=== PATIENT | male | born 1930 | race African-American/Black ===

== ENCOUNTER 2016-07-10 11:21 | Inpatient (IN) ==
--- NOTE | 2016-07-10 11:51 | EKG Report ---
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
[2016-07-10 11:57] LABS: Basophils % 0.2 % (0.0-0.8); Hematocrit 35.3 VOL% (42.0-52.0); Hemoglobin 11.9 GM/DL (14.0-18.0); Immature Granulocytes % 0.4 %; Immature Granulocytes Absolute 0.02 #; Lymphocytes # 0.3 10*3/uL (1.4-4.0); Lymphocytes % 5.6 % (21.2-54.2); Mean Corpuscular HGB Conc 33.7 GM/DL (32-36); Mean Corpuscular Hemoglobin 33 PG (27-34); Mean Corpuscular Volume 98.3 FL (87-102); Mean Platelet Volume 10.5 FL (9.6-12.0); Monocytes # 0.7 10*3/uL (0.11-0.8); Monocytes % 13.3 % (1.7-12.7); Neutrophils # 4.5 10*3/uL (1.4-7.4); Neutrophils % 80.5 % (38.7-73.9); Platelet Count 134 T/CUMM (130-400); Red Blood Count 3.59 MC/CUMM (3.8-5.5); Red Cell Distribution Width 11.9 % (9.3-17.3); White Blood Count 5.6 T/CUMM (4-12)
[2016-07-10 12:09] LABS: Partial Thromboplastin Time 38.9 SECS (0-40)
--- NOTE | 2016-07-10 12:09 | CT Report ---
History: Headache after fall Date: 07/10/2016 Study: CT head without contrast Comparison exam: No previous Transaxial CT sections were obtained through the head without IV contrast. This CT exam was performed using one or more the following dose reduction techniques: Automated exposure control, adjustment of the MA and/or KV according to patient size, or use of iterative reconstruction technique. There is moderate diffuse cerebral atrophy. Ventricles are midline in position without evidence of hydrocephalus. There is a small amount of ill-defined low density in the periventricular white matter without mass effect compatible with changes of small vessel disease. There is wedge-shaped area of decreased density compatible with chronic ischemia in the right occipital lobe. There is no acute extra-axial hematoma. There is no acute fracture of the calvarium. The partially visualized paranasal sinuses and mastoid air cells are clear. Impression: No acute intracranial process. Chronic right occipital infarct. Cerebral atrophy PROCEDURE INTERPRETED AT [facility] DEPARTMENT OF RADIOLOGY Final Report Signed by: Dr. Anjelica Marrero
[2016-07-10 12:14] LABS: INR 2.4
--- NOTE | 2016-07-10 12:15 | CT Report ---
History: Neck pain after fall Date: 07/10/2016 Study: CT cervical spine without contrast Comparison exam: No previous similar available Thin spiral CT sections were obtained through the cervical spine without IV contrast. Multiplanar reconstruction images are also evaluated. This CT exam was performed using one or more the following dose reduction techniques: Automated exposure control, adjustment of the MA and/or KV according to patient size, or use of iterative reconstruction technique. There is no acute fracture, subluxation, or prevertebral soft tissue swelling. There is severe degenerative disc narrowing with moderate anterior spondylosis at C2-C3 through C6-C7. This includes prominent cystic degenerative changes of the endplates. There is prominent facet hypertrophy. There is mild narrowing of the spinal canal related to mild posterior diffuse bulging disc and osteophyte at C3-C4 through C5-C6, with mild to moderate neural foraminal narrowing at these levels related to uncovertebral hypertrophy as well. There is moderate spinal stenosis at C6-C7 secondary to posterior diffuse bulging osteophyte as well as ligament flavum hypertrophy; there is moderate right greater than left neural foraminal narrowing at this level related to uncovertebral hypertrophy. Impression: No acute fracture. Severe degenerative disc disease cervical spine PROCEDURE INTERPRETED AT [facility] DEPARTMENT OF RADIOLOGY Final Report Signed by: Dr. Anjelica Marrero
[2016-07-10 12:16] LABS: PT Patient Result 26.7 SECS
--- NOTE | 2016-07-10 12:21 | XRay Report ---
History: Shortness of breath. History of prostate cancer Date: 07/10/2016 Study: Chest x-ray AP portable Comparison exam: No previous chest x-ray available There is moderate cardiomegaly. There is no mediastinal mass. There is mild ectasia and tortuosity of the thoracic aorta in this patient status post prior sternotomy. The pulmonary vasculature is not engorged. The lungs are generally clear for shallow breath. There is no gross pleural effusion. There is mild thoracic spondylosis. Impression: No definite evidence of acute cardiopulmonary process. Cardiomegaly PROCEDURE INTERPRETED AT [facility] DEPARTMENT OF RADIOLOGY Final Report Signed by: Dr. Anjelica Marrero
[2016-07-10 12:28] LABS: Amorphous Crystals,Urine Occasional /HPF (Few); Apearance,Urine Slightly Hazy (Clear); Bacteria,Urine Occasional /HPF (Few); Bilirubin,Urine Negative (Negative); Blood, Urine Moderate mg/dL (Negative); Glucose,Urine (UA) Negative (Negative); Ketones,Urine Negative (Negative); Mucus,Urine Occasional /LPF (Occasional); Nitrite,Urine Negative (Negative); Protein,Urine 30 MG/DL; RBC,Urine 3 /HPF (0-4); Squamous Epithelial Cell,Urine Occasional /HPF (0-10); Urine Specific Gravity 1.014 (1.001-1.035); Urine Urobilinogen < 2.0 EU/DL (0.2-1.0); WBC,Urine 1 /HPF (0-6)
[2016-07-10 12:29] LABS: Urine Color Amber (Yellow)
[2016-07-10 12:39] LABS: Bilirubin,Total 2.6 MG/DL (0.2-1.0); Calcium 9.3 MG/DL (8.5-10.1); Osmolality,Calculated 287.1 MOS/KG (273-304); Potassium 3.9 MMOL/L (3.5-5.1); Total Protein 6.9 G/DL (6.4-8.3)
[2016-07-10] MEDS ORDERED: ACETAMINOPHEN 325 MG TABLET PO PRN (12:50)
[2016-07-10] MEDS ORDERED: ONDANSETRON 4 MG/2 ML VIAL IV PRN (12:50)
[2016-07-10] MEDS ORDERED: BISACODYL 10 MG SUPP RECTAL PRN (12:50)
--- NOTE | 2016-07-10 12:50 | Emergency Department Note ---
Aman Lozano Brittany, am scribing for, and in the presence of, Yonis Akins MD 11:38. Tashi Lozano Doug C, MD, personally performed the services described in this documentation, ascribed by Olga Newton in my presence, and it is both accurate and complete . Arrival - Arrival Chief Complaint: Fall Stated Complaint: fall ED Nursing Triage Note: found on floor in hallway by family this morning more confused than usual. pt has a hx of dementia but lives alone. last time family saw him well was about 1500 yesterday afternoon when she took him food. Mode of Arrival: Stretcher Limitations: No Limitations Source: Patient, Family, RN Notes Reviewed Time Seen by Provider: 07/10/16 11:28 - History of Present Illness HPI Narrative: Patient is a 86-year-old black male who presents to the emergency room after falling at home. We are uncertain exactly when he fell but family found him on the floor and he was unable to get up. He has a history of dementia which is slowly but surely getting worse. Family does not think he can continue to live alone. Patient does not remember when he fell, how he fell or if he hurt himself. There is no history of any preceding illness recently. Patient does have a history of prostate cancer and has had a previous mitral valve replacement. There is no history of fever, urinary symptoms or any GI complaints. According to family he is having recurring falls and they are unable to watch him as closely as they like as they are working. Patient denies any pain at present. Patient is on Coumadin for mitral valve replacement. Onset (ago): hour(s) Consistency: constant Allergies/Adverse Reactions: Allergies Allergy/AdvReac Type Severity Reaction Status Date / Time No Known Allergies Allergy Unverified 07/10/16 11:45 Home Medications: Home Medications Medication Instructions Recorded Confirmed Type Latanoprost [Latanoprost 0.005 % 1 drop BOTH EYES QAM 07/10/16 07/10/16 History Oph Soln] Timolol Maleate [Timolol 0.5% Oph 1 drop BOTH EYES QAM 07/10/16 07/10/16 History Soln] Warfarin Sodium 5 mg PO DAILY 07/10/16 07/10/16 History amLODIPine [Norvasc] 5 mg PO DAILY 07/10/16 07/10/16 History Review of System - Review of System ROS unobtainable: due to dementia 12 point system: reviewed and no additional remarkable complaints except as stated - Review of System Constitutional: Absent: chills, fever Eyes: Absent: vision change Head/Ears/Nose/Throat: Absent: nasal drainage, sore throat Respiratory: Absent: respiratory distress Cardiovascular: Absent: chest pain Gastrointestinal: Absent: abdominal pain, nausea, vomiting, diarrhea, constipation Genitourinary male: Absent: urgency, dysuria, frequency Musculoskeletal: Absent: arm pain, back pain, leg pain, neck pain Neurological: Present: as per HPI, confusion (per family patient has been becoming increasingly confused more than baseline ). Absent: headache Psychiatric: Absent: anxiety, depression Hematological/Lymphatic: Absent: easy bleeding, easy bruising Medical,Surgical,& Family Hx - Medical History Cardio: History of: Hypertension, Valvular Heart Disease Neurology: History of: Dementia - Surgical History Surgical History: noncontributory - Family History Family History: noncontributory - Social History Smoking Status: Unknown if ever smoked Exam Vital Signs: Vital Signs Temperature 98.3 F 07/10/16 11:48 Pulse Rate 68 07/10/16 11:48 Respiratory Rate 20 07/10/16 11:48 Blood Pressure 128/78 07/10/16 11:48 O2 Sat by Pulse Oximetry 97 07/10/16 11:21 - General General appearance: alert, in no apparent distress, other (Patient is unable to provide any history due to his dementia) - Head Head exam: Present: atraumatic, normocephalic, normal inspection - Eye Eye exam: Present: PERRL, EOMI - ENT ENT exam: Present: normal exam, normal oropharynx - Neck Neck exam: Present: full ROM, trachea midline, other (C-Collar in place). Absent: tenderness - Chest Chest inspection: Present: normal inspection, symmetric chest wall rise - Respiratory Respiratory exam: Present: normal lung sounds bilaterally - Cardiovascular Cardiovascular exam: Present: regular rate, normal rhythm, normal heart sounds - Abdominal Exam Abdominal exam: Present: soft, normal bowel sounds. Absent: tenderness - Extremities Exam Extremities exam: Present: normal inspection, full ROM. Absent: tenderness - Back Exam Back exam: Present: normal inspection, full ROM. Absent: tenderness - Neurological Exam Neurological exam: Present: alert, oriented X3, CN II-XII intact (no facial asymmetry). 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 Patient certainly at high risk for recurring falls and probably needs long term placement. The family is unable to care for him any longer at home and he lives alone. Results - Labs CBC & BMP: 07/10/16 11:44 07/10/16 11:44 Lab Results: I have reviewed the patients labs Labs: Laboratory Tests 07/10/16 11:44 WBC 5.6 RBC 3.59 L Hgb 11.9 L Hct 35.3 L MCV 98.3 MCH 33 MCHC 33.7 RDW 11.9 Plt Count 134 MPV 10.5 Neut % (Auto) 80.5 H Lymph % (Auto) 5.6 L [place] % (Auto) 13.3 H Eos % (Auto) 0.0 Baso % (Auto) 0.2 Neut # (Auto) 4.5 Lymph # (Auto) 0.3 L [place] # (Auto) 0.7 Eos # (Auto) 0.0 Baso # (Auto) 0.0 Immature Gran % 0.4 Nucleated RBC % 0.0 Immature Gran # 0.02 Nucleated RBCs # 0.00 Laboratory Tests 07/10/16 07/10/16 11:44 12:15 INR 2.4 PT Patient/Control Mix 26.7 Circ Anticoag PTT 38.9 Urine Color Georgie Urine Appearance Slightly hazy Urine pH 5.0 Ur Specific [place] 1.014 Urine Protein 30 Urine Glucose (UA) Negative Urine Ketones Negative Urine Blood Moderate Urine Nitrate Negative Urine Bilirubin Negative Urine Urobilinogen < 2.0 H Urine Leukocytes Negative Urine RBC 3 Urine WBC 1 Ur Squamous Epith Cells Occasional Amorphous Crystals Occasional Urine Bacteria Occasional Urine Mucus Occasional Laboratory Tests 07/10/16 11:44 Sodium 142 Potassium 3.9 Chloride 107 Carbon Dioxide 23 Anion Gap 15.9 H BUN 26 H Creatinine 1.60 H GFR Calculation 51 BUN/Creatinine Ratio 16.00 Glucose 100 Calculated Osmolality 287.1 Calcium 9.3 Total Bilirubin 2.60 H AST 36 ALT 14 L Alkaline Phosphatase 58 Total Protein 6.9 Albumin 4.0 Globulin 2.9 Albumin/Globulin Ratio 1.3 - Diagnostic Findings Procedure: Chest x-ray: report reviewed by me (No definite evidence of acute cardiopulmonary process. Cardiomegaly.), CT: report reviewed by me (CT Head: No acute intracranial process. Chronic right occipital infarct. Cerebral atrophy. CT Cervical Spine: No acute fracture. Severe degenerative disc disease cervical spine.) Disposition Clinical Impression: Recurrent falls, Advanced dementia Case discussed with: patient, patient's family Disposition: Still a Patient Condition: Guarded Time of Disposition: 12:50
--- NOTE | 2016-07-10 13:24 | XRay Report ---
History: Injury. Fall. Date: 07/10/2016 Study: Right hip 2 views to include AP pelvis Comparison exam: No previous similar There is no acute fracture, dislocation, or focal destructive osseous abnormality. There is mild osteophyte formation and joint space narrowing associated with the right hip more so than the left. Surgical clips overlie the lower right hemipelvis. Impression: No fracture. 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 Anjelica Marrero
[2016-07-10] MEDS: SODIUM CHLORIDE 0.9% 1,000 ML IV SCH (15:00)
[2016-07-10] MEDS: WARFARIN 5 MG TABLET PO SCH (17:44)
[2016-07-10] MEDS: DOCUSATE SODIUM 100 MG CAPSULE PO SCH (20:53)
[2016-07-11] MEDS: SODIUM CHLORIDE 0.9% 1,000 ML IV SCH ×3 (00:57→22:59)
[2016-07-11 05:12] LABS: Basophils % 0.2 % (0.0-0.8); Eosinophils % 0.2 % (0.00-10.9); Hematocrit 33.9 VOL% (42.0-52.0); Hemoglobin 11.4 GM/DL (14.0-18.0); Immature Granulocytes % 0.4 %; Immature Granulocytes Absolute 0.02 #; Lymphocytes # 0.5 10*3/uL (1.4-4.0); Lymphocytes % 9.3 % (21.2-54.2); Mean Corpuscular HGB Conc 33.6 GM/DL (32-36); Mean Corpuscular Hemoglobin 33 PG (27-34); Mean Corpuscular Volume 97.4 FL (87-102); Mean Platelet Volume 10.2 FL (9.6-12.0); Monocytes # 0.8 10*3/uL (0.11-0.8); Monocytes % 14.6 % (1.7-12.7); Neutrophils % 75.3 % (38.7-73.9); Platelet Count 126 T/CUMM (130-400); Red Blood Count 3.48 MC/CUMM (3.8-5.5); Red Cell Distribution Width 11.9 % (9.3-17.3); White Blood Count 5.3 T/CUMM (4-12)
--- NOTE | 2016-07-11 08:28 | Family Practice History&Phys ---
Assessment and Plan (1) Traumatic rhabdomyolysis Status: Acute Assessment and plan: 07/11/2016: This appears to be mild. Current Visit: Yes (2) Advanced dementia Status: Acute Assessment and plan: 07/11/2016: Patient's dementia has worsened over the course of the last 6 months. Current Visit: Yes (3) Recurrent falls Status: Acute Assessment and plan: 07/11/2016: Patient with history of recurring falls and is also on blood thinners for valvular heart disease. He is not a candidate for staying home any longer. I made the family aware of this. Current Visit: Yes History of Present Illness Chief complaint: Recurring falls History of present illness: Mr. Damon is a 86 year old male Patient's 86-year-old black male with progressing dementia that apparently fell at home and was found by the family on the floor. Patient is unable to tell us when he fell. Patient is certainly not able to care for himself in the home setting and family requires some assistance in that regard. Patient denies any pain or discomfort. He is on blood thinners and a CT of the brain and C-spine were obtained which revealed no evidence of hemorrhage. Family is noted that he has been very unsteady on his feet. He is not eating very well and his dementia is progressively getting worse. He has not had any fever the family is aware of and has not had any problems with bowel or bladder function. Patient does have a history of prostate cancer. He was moving all extremities in the emergency room had no evidence of extremity injury. Home Medications Medication Instructions Recorded Confirmed Type Latanoprost [Latanoprost 0.005 % 1 drop BOTH EYES QA 07/10/16 07/10/16 History Oph Soln] Timolol Maleate [Timolol 0.5% Oph 1 drop BOTH EYES QA 07/10/16 07/10/16 History Soln] Warfarin Sodium 5 mg PO DAILY 07/10/16 07/10/16 History amLODIPine [Norvasc] 5 mg PO DAILY 07/10/16 07/10/16 History Allergies Allergy/AdvReac Type Severity Reaction Status Date / Time No Known Allergies Allergy Unverified 07/10/16 11:45 ROS unobtainable: due to dementia Medical,Surgical,& Family Hx - Medical History Cardio: History of: Cardiac Dysrhythmia (A. fib flutter), Hypertension, Valvular Heart Disease Neurology: History of: Dementia - Surgical History Cardiac Surgeries: Sugical HX of: Cardiac Surgery - Family History Family History: noncontributory - Social History Smoking Status: Unknown if ever smoked Frequency of Alcohol Use: None Type of Drug Use: None Exam - Constitutional Vitals: Period Temp Pulse Resp BP Sys/[place]og[place] Pulse Ox Last 24 Hr 97.8 F-99.7 F 66-83 14-20 124-148/74-93 92-100 Exam: General: Objective patient is a well-developed pleasantly demented black male in no acute distress. I asked him where he was this morning he told me he was at home. Patient is unable to provide any reliable history whatsoever. HEENT: Pupils equal and reactive to light. Patent nares and airway Neck: No meningismus, adenopathy, thyromegaly. There are no auscultated carotid bruits. Cardiovascular: Regular rhythm. No murmurs or gallops Chest: Clear to auscultation without rales rhonchi wheezes. Abdomen: Soft nontender to palpation No masses, rebound, guarding or tenderness. Neuro: Cranial nerves intact and DTRs and strength symmetric in all extremities. Patient is quite demented. Dermatologic: No evidence of abnormal lesions or masses. Musculoskeletal: There is no joint swelling or tenderness or deformity. Extremities: There is no calf swelling or tenderness. Results - Labs CBC & BMP: 07/11/16 05:01 07/10/16 11:44 Lab Results: I have reviewed the past 24 hour labs
[2016-07-11] MEDS: PANTOPRAZOLE 40 MG TABLET PO SCH (08:51)
[2016-07-11] MEDS: amLODIPine 5 MG TABLET PO SCH (08:51)
[2016-07-11] MEDS: DOCUSATE SODIUM 100 MG CAPSULE PO SCH ×2 (08:51→22:57)
[2016-07-11] MEDS: LATANOPROST 0.005% OPH SOLN 2.5 ML BOTTLE BOTH EYES SCH ×2 (09:00→11:26)
[2016-07-11] MEDS: TIMOLOL 0.5% OPH SOLN 5 ML BOTTLE BOTH EYES SCH ×2 (09:00→11:27)
[2016-07-11] MEDS: WARFARIN 5 MG TABLET PO SCH (17:13)
--- NOTE | 2016-07-12 07:52 | Family Practice Progress Note ---
Family Practice - PN: Subj Interval history: Patient is feeling fine this morning still does not know where he is at. He obviously is not able to return to the home setting. Have consulted case management about shelter placement. He denies any pain this morning Exam (Progress Note) - Constitutional Vitals: Period Temp Pulse Resp BP Sys/Noguera Pulse Ox Last 24 Hr 97.8 F-100 F 62-77 16-20 115-128/61-77 18-100 Exam: Objective a well-developed pleasant black gentleman in no acute distress. Lying flat in bed and answers questions appropriately though he is obviously disoriented. Cardiovascular: Heart rates regular without murmurs or gallops. Respiratory: Lungs clear to auscultation bilaterally. Abdomen: Soft nontender to palpation. Results - Labs CBC & BMP: 07/11/16 05:01 07/10/16 11:44 Lab Results: I have reviewed the past 24 hour labs Assessment and Plan (1) Traumatic rhabdomyolysis Status: Resolved Assessment and plan: 07/11/2016: This appears to be mild. 07/12/2016: This requires no further treatment. Current Visit: Yes (2) Advanced dementia Status: Acute Assessment and plan: 07/11/2016: Patient's dementia has worsened over the course of the last 6 months. 07/12/2016: We will attempt shelter placement. Current Visit: Yes (3) Recurrent falls Status: Acute Assessment and plan: 07/11/2016: Patient with history of recurring falls and is also on blood thinners for valvular heart disease. He is not a candidate for staying home any longer. I made the family aware of this. Current Visit: Yes
[2016-07-12] MEDS: LATANOPROST 0.005% OPH SOLN 2.5 ML BOTTLE BOTH EYES SCH (08:35)
[2016-07-12] MEDS: amLODIPine 5 MG TABLET PO SCH (09:25)
[2016-07-12] MEDS: PANTOPRAZOLE 40 MG TABLET PO SCH (09:25)
[2016-07-12] MEDS: TIMOLOL 0.5% OPH SOLN 5 ML BOTTLE BOTH EYES SCH (09:27)
[2016-07-12] MEDS: SODIUM CHLORIDE 0.9% 1,000 ML IV SCH ×2 (09:29→19:30)
--- NOTE | 2016-07-12 16:33 | Case Mgmt Physician Query Form ---
TB Signs and Symptoms Screening ([place]) INSTRUCTIONS: To be completed annually on residents/staff with a significant Tuberculin Skin Test (TST) upon admission/hire or a prior significant TST. To be completed on all staff at hire. Please respond to each listed symptom with an (X) in either the "YES" or "NO" box. Do you currently have any of the following symptoms: YES NO ( ) (x ) A cough If yes, is it: ( ) Productive ( ) Non- productive ( ) (x ) Hemoptysis (spitting up blood) ( ) (x ) Chest pains ( ) (x ) Weight Loss ( ) (x ) Fever ( ) (x ) Night Sweats (x ) ( ) Weakness ( ) (x ) Loss of Appetite ( ) (x ) Difficulty Breathing If you answered YES" to any of the above questions, how long have symptoms been present? Comments: If you have any questions, please contact me. Thank you, Patricia AYALA P: [phone] F: [phone] E: [email or web address]
[2016-07-12] MEDS ORDERED: TUBERCULIN SKIN TEST 0.1 ML SYRINGE INTRADERM ONE (17:00)
[2016-07-12] MEDS: WARFARIN 5 MG TABLET PO SCH (18:28)
[2016-07-12] MEDS: DOCUSATE SODIUM 100 MG CAPSULE PO SCH ×2 (18:30→22:26)
[2016-07-13 04:31] LABS: INR 3.5
[2016-07-13 04:36] LABS: PT Patient Result 39.7 SECS
--- NOTE | 2016-07-13 07:58 | Family Practice Progress Note ---
Family Practice - PN: Subj Interval history: Patient is doing very well this morning apparently ate fairly well yesterday. 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 Exam (Progress Note) - Constitutional Vitals: Period Temp Pulse Resp BP Sys/N[place]uera Pulse Ox Last 24 Hr 97.8 F-99.8 F 61-75 18-20 115-134/64-93 97-99 Exam: Objective a well-developed pleasant black gentleman in no acute distress. Patient sitting up in a chair states he feels well. Cardiovascular: Heart rates regular without murmurs or gallops. Patient has good valve tones Respiratory: Lungs clear to auscultation bilaterally. Abdomen: Soft nontender to palpation. Results - Labs CBC & BMP: 07/11/16 05:01 07/10/16 11:44 Lab Results: I have reviewed the past 24 hour labs Assessment and Plan (1) Traumatic rhabdomyolysis Status: Resolved Assessment and plan: 07/11/2016: This appears to be mild. 07/12/2016: This requires no further treatment. Current Visit: Yes (2) Advanced dementia Status: Acute Assessment and plan: 07/11/2016: Patient's dementia has worsened over the course of the last 6 months. 07/12/2016: We will attempt care home placement. 07/13/2016: [facility] placement is pending. Current Visit: Yes (3) Recurrent falls Status: Acute Assessment and plan: 07/11/2016: Patient with history of recurring falls and is also on blood thinners for valvular heart disease. He is not a candidate for staying home any longer. I made the family aware of this. 07/13/2016: Physical therapy has been consult Current Visit: Yes
[2016-07-13] MEDS: PANTOPRAZOLE 40 MG TABLET PO SCH (09:01)
[2016-07-13] MEDS: LATANOPROST 0.005% OPH SOLN 2.5 ML BOTTLE BOTH EYES SCH (09:01)
[2016-07-13] MEDS: DOCUSATE SODIUM 100 MG CAPSULE PO SCH ×2 (09:01→20:23)
[2016-07-13] MEDS: amLODIPine 5 MG TABLET PO SCH (09:01)
[2016-07-13] MEDS: TIMOLOL 0.5% OPH SOLN 5 ML BOTTLE BOTH EYES SCH (09:01)
[2016-07-13] MEDS: SODIUM CHLORIDE 0.9% 1,000 ML IV SCH (22:47)
[2016-07-14] MEDS: SODIUM CHLORIDE 0.9% 1,000 ML IV SCH (03:18)
[2016-07-14 05:36] LABS: INR 4.4
[2016-07-14] MEDS: WARFARIN 5 MG TABLET PO SCH (07:33)
--- NOTE | 2016-07-14 07:37 | Discharge Summary ---
Hospital Course - Hospital Course Hospital Course: Patient is 86-year-old black male who lives at home alone. He has rather severe dementia and family does not have the resources to care for him in the home setting. Patient was found on the floor by his sister and brought to the emergency room further evaluation. Patient was noted to have elevated CPK consistent with mild rhabdomyolysis. Patient was unable provide any history whatsoever. It was obvious he is no longer a candidate for living alone. The family is agreeable for him to go to a shelter setting. This is being arranged. Diagnosis - Discharge Diagnosis (1) Traumatic rhabdomyolysis Status: Resolved (2) Advanced dementia Status: Acute (3) Recurrent falls Status: Acute Specialty Discharge - Follow Up or Referrals Follow up with: Yonis Akins MD [Emergency Provider] - 2 Weeks Discharge Plan - Discharge Data Disposition: Disch/Xfer to Snf Condition at Discharge: Stable Discharge Diet: advance to your usual diet Activity: as per physical therapy Hygiene: no restrictions Weight Bearing at Discharge: full weight bearing Contact your physician if you experience:: fever over 101 - Discharge Medications New Acetaminophen Tab [Tylenol Tab] 650 mg PO Q6H PRN tablet PRN Reason: Fever > 100.4 Or Headache Warfarin [Coumadin] 4 mg PO DAILY@1800 #30 tablet Continue Timolol Maleate [Timolol 0.5% Oph Soln] 1 drop BOTH EYES QAM Latanoprost [Latanoprost 0.005 % Oph Soln] 1 drop BOTH EYES QAM amLODIPine [Norvasc] 5 mg PO DAILY Discontinued Warfarin Sodium 5 mg PO DAILY - Follow Up or Referral Follow Up: Yonis Akins MD [Emergency Provider] - 2 Weeks - Forms/Instructions Exam - Constitutional Vitals: Period Temp Pulse Resp BP Sys/Noguera Pulse Ox Last 24 Hr 99.0 F-99.7 F 71-83 18-20 110-132/56-92 97-100 Exam: Objective a well-developed pleasant black gentleman in no acute distress. Patient sitting up in a chair states he feels well. Cardiovascular: Heart rates regular without murmurs or gallops. Patient has good valve tones Respiratory: Lungs clear to auscultation bilaterally. Abdomen: Soft nontender to palpation. Discharge Results Procedures and tests throughout hospitalization: Pending Orders 07/15/16 04:00 Prothrombin Time INR IN AM Labs on day of discharge: Labs from last 24 hours 07/14/16 04:55 INR 4.4 PT Patient/Control Mix 51.0 D Coumadin will be held again today. Repeat PT/INR in the a.m. DS: Provider Date of admission: 07/10/16 12:50 Primary care physician: . 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
[2016-07-14] MEDS: LATANOPROST 0.005% OPH SOLN 2.5 ML BOTTLE BOTH EYES SCH (08:23)
[2016-07-14] MEDS: TIMOLOL 0.5% OPH SOLN 5 ML BOTTLE BOTH EYES SCH (08:23)
[2016-07-14] MEDS: PANTOPRAZOLE 40 MG TABLET PO SCH (08:23)
[2016-07-14] MEDS: DOCUSATE SODIUM 100 MG CAPSULE PO SCH (08:23)
[2016-07-14] MEDS: amLODIPine 5 MG TABLET PO SCH (08:23)
[2016-07-14 12:43] VITALS: BP 121/69
== END 2016-07-14 12:44 | DRG 565 ==
LOC: EDBD → EDUNIT# → N.ED 11:21 → N.EDINP 12:50 → N.2E 14:05
PROVIDERS: ADMIT Family Medicine; ATTEND Family Medicine

== ENCOUNTER 2018-11-09 05:07 | Inpatient (IN) ==
[2018-11-09] MEDS ORDERED: VANCOMYCIN INJ 1,000 MG in SODIUM CHLORIDE 0.9% 250 ML IV STA (05:15)
[2018-11-09] MEDS ORDERED: SODIUM CHLORIDE 0.9% 1,000 ML IV STA (05:15)
[2018-11-09] MEDS ORDERED: CEFEPIME 2,000 MG in SODIUM CHLORIDE 0.9% 100 ML IV STA ×2 (05:17→05:18)
[2018-11-09] MEDS ORDERED: VANCOMYCIN INJ 1,500 MG in SODIUM CHLORIDE 0.9% 500 ML IV STA (05:22)
[2018-11-09 05:49] LABS: Basophils % 0.2 % (0.0-0.8); Eosinophils # 0.1 10*3/uL (0.0-0.87); Eosinophils % 1.1 % (0.00-10.9); Hematocrit 27.7 VOL% (42.0-52.0); Hemoglobin 8.8 GM/DL (14.0-18.0); Immature Granulocytes % 0.7 %; Immature Granulocytes Absolute 0.06 #; Lymphocytes # 0.7 10*3/uL (1.4-4.0); Mean Corpuscular HGB Conc 31.8 GM/DL (32-36); Mean Corpuscular Volume 103.7 FL (87-102); Mean Platelet Volume 9.5 FL (9.6-12.0); Monocytes % 9.8 % (1.7-12.7); Neutrophils % 80.2 % (38.7-73.9); Platelet Count 344 T/CUMM (130-400); Red Blood Count 2.67 MC/CUMM (3.8-5.5); Red Cell Distribution Width 13.9 % (9.3-17.3); White Blood Count 8.5 T/CUMM (4-12)
[2018-11-09 06:04] LABS: Apearance,Urine CLEAR (Clear); Bacteria,Urine Occasional /HPF (Few); Bilirubin,Urine Negative (Negative); Blood, Urine Small mg/dL (Negative); Glucose,Urine (UA) Negative (Negative); Ketones,Urine Negative (Negative); Mucus,Urine Occasional /LPF (Occasional); Nitrite,Urine Negative (Negative); Protein,Urine 100 MG/DL; RBC,Urine 3 /HPF (0-4); Urine Color Yellow (Yellow); Urine Specific Gravity 1.013 (1.001-1.035); Urine Urobilinogen < 2.0 EU/DL (0.2-1.0); WBC,Urine 1 /HPF (0-6)
[2018-11-09 06:09] LABS: Albumin 3.5 G/DL (3.4-5.0); Bilirubin,Total 1.1 MG/DL (0.2-1.0); Calcium 9.4 MG/DL (8.5-10.1); Osmolality,Calculated 298.3 MOS/KG (273-304); Total Protein 7.5 G/DL (6.4-8.3)
[2018-11-09] MEDS ORDERED: DOCUSATE SODIUM 100 MG CAPSULE PO PRN (07:13)
[2018-11-09] MEDS ORDERED: ACETAMINOPHEN 325 MG TABLET PO PRN (07:13)
[2018-11-09] MEDS ORDERED: ONDANSETRON 4 MG/2 ML VIAL IV PRN (07:13)
[2018-11-09] MEDS ORDERED: LEVOFLOXACIN INJ 750 MG in PREMIX 1 EACH IV SCH (07:30)
[2018-11-09] MEDS ORDERED: ENOXAPARIN 40 MG/0.4 ML SYRINGE SUBCUT SCH (07:30)
[2018-11-09 07:36] LABS: INR 1.8; PT Patient Result 19.6 SECS (9.6-12.2)
[2018-11-09 07:49] LABS: Risk Ratio 2.43; Thyroid Stimulating Hormone 1.86 uIU/ml (0.358-3.74); VLDL CHOLESTEROL 9.6 MG/DL
[2018-11-09] MEDS: PIPERACILLIN/TAZOBACTAM 3,375 MG in SODIUM CHLORIDE 0.9% 100 ML IV SCH ×2 (09:53→16:42)
[2018-11-09] MEDS: PANTOPRAZOLE 40 MG TABLET PO SCH (09:56)
[2018-11-09] MEDS: ALBUTEROL/IPRATROPIUM 3 ML NEB RESP TX SCH ×2 (13:20→19:07)
[2018-11-09] MEDS: LEVOFLOXACIN INJ 750 MG in PREMIX 1 EACH IV SCH (14:04)
[2018-11-09] MEDS ORDERED: MAGNESIUM SULF RIDER 4 GM in PREMIX 1 EACH IV PRN (16:45)
[2018-11-09] MEDS ORDERED: MAGNESIUM SULF RIDER 2 GM in PREMIX 1 EACH IV PRN (16:45)
[2018-11-09] MEDS ORDERED: VANCOMYCIN INJ 1,500 MG in SODIUM CHLORIDE 0.9% 500 ML IV SCH (18:00)
[2018-11-09] MEDS: VANCOMYCIN INJ 1,500 MG in SODIUM CHLORIDE 0.9% 500 ML IV SCH (18:02)
[2018-11-09] MEDS: POTASSIUM CHLORIDE 20 MEQ TABLET PO PRN ×3 (18:06→23:52)
[2018-11-09] MEDS: ENOXAPARIN 40 MG/0.4 ML SYRINGE SUBCUT SCH (21:05)
[2018-11-09] MEDS: ALBUTEROL 2.5 MG/3 ML NEB RESP TX PRN (21:53)
[2018-11-10] MEDS: ALBUTEROL/IPRATROPIUM 3 ML NEB RESP TX SCH ×4 (01:45→19:45)
[2018-11-10] MEDS: PIPERACILLIN/TAZOBACTAM 3,375 MG in SODIUM CHLORIDE 0.9% 100 ML IV SCH ×3 (01:47→16:28)
[2018-11-10] MEDS: POTASSIUM CHLORIDE 20 MEQ TABLET PO PRN ×2 (01:47→04:29)
[2018-11-10 04:48] LABS: Basophils % 0.3 % (0.0-0.8); Eosinophils # 0.1 10*3/uL (0.0-0.87); Eosinophils % 0.7 % (0.00-10.9); Hematocrit 26.1 VOL% (42.0-52.0); Hemoglobin 8.2 GM/DL (14.0-18.0); Immature Granulocytes % 0.4 %; Immature Granulocytes Absolute 0.03 #; Lymphocytes # 0.5 10*3/uL (1.4-4.0); Lymphocytes % 7.9 % (21.2-54.2); Mean Corpuscular HGB Conc 31.4 GM/DL (32-36); Mean Corpuscular Volume 104.8 FL (87-102); Monocytes % 12.4 % (1.7-12.7); Neutrophils % 78.3 % (38.7-73.9); Platelet Count 307 T/CUMM (130-400); Red Blood Count 2.49 MC/CUMM (3.8-5.5); Red Cell Distribution Width 13.9 % (9.3-17.3); White Blood Count 6.7 T/CUMM (4-12)
[2018-11-10 05:03] LABS: INR 2.2
[2018-11-10 05:04] LABS: PT Patient Result 23.4 SECS (9.6-12.2)
[2018-11-10 05:23] LABS: Calcium 8.9 MG/DL (8.5-10.1); Osmolality,Calculated 296.3 MOS/KG (273-304)
[2018-11-10] MEDS: VANCOMYCIN INJ 1,500 MG in SODIUM CHLORIDE 0.9% 500 ML IV SCH ×2 (05:50→19:11)
[2018-11-10] MEDS ORDERED: VANCOMYCIN INJ 1,250 MG in SODIUM CHLORIDE 0.9% 250 ML IV SCH (06:00)
[2018-11-10] MEDS: ALBUTEROL 2.5 MG/3 ML NEB RESP TX PRN (06:55)
[2018-11-10 09:12] LABS: % Iron Saturation 21.5 % (18-50); Ferritin 460.3 ng/ml (26-388)
[2018-11-10] MEDS: PANTOPRAZOLE 40 MG TABLET PO SCH (09:50)
[2018-11-10] MEDS: methylPREDNISolone SOD SUC 40 MG/1 ML VIAL IV SCH ×2 (09:50→20:28)
[2018-11-10] MEDS: FUROSEMIDE 40 MG/4 ML VIAL IV SCH ×2 (09:50→16:28)
[2018-11-10] MEDS: LEVOFLOXACIN INJ 750 MG in PREMIX 1 EACH IV SCH (14:06)
[2018-11-10] MEDS: ENOXAPARIN 40 MG/0.4 ML SYRINGE SUBCUT SCH (20:28)
[2018-11-11] MEDS: ALBUTEROL/IPRATROPIUM 3 ML NEB RESP TX SCH ×2 (00:45→07:25)
[2018-11-11] MEDS: PIPERACILLIN/TAZOBACTAM 3,375 MG in SODIUM CHLORIDE 0.9% 100 ML IV SCH ×2 (01:08→08:23)
[2018-11-11 04:27] LABS: Hemoglobin 9.1 GM/DL (14.0-18.0); Immature Granulocytes % 0.5 %; Immature Granulocytes Absolute 0.03 #; Lymphocytes # 0.2 10*3/uL (1.4-4.0); Lymphocytes % 4.1 % (21.2-54.2); Mean Corpuscular HGB Conc 32.5 GM/DL (32-36); Mean Corpuscular Volume 101.4 FL (87-102); Mean Platelet Volume 9.5 FL (9.6-12.0); Monocytes % 2.5 % (1.7-12.7); Neutrophils % 92.9 % (38.7-73.9); Platelet Count 341 T/CUMM (130-400); Red Blood Count 2.76 MC/CUMM (3.8-5.5); Red Cell Distribution Width 13.8 % (9.3-17.3); White Blood Count 5.6 T/CUMM (4-12)
[2018-11-11 04:46] LABS: INR 2.5
[2018-11-11 04:47] LABS: PT Patient Result 26.8 SECS (9.6-12.2)
[2018-11-11 05:09] LABS: Osmolality,Calculated 289.8 MOS/KG (273-304)
[2018-11-11 05:37] LABS: Lymphocytes 3 % (20-55); Platelet Estimate Normal; Segmented Neutrophils 95 % (50-85); Total Cells Counted 100
[2018-11-11] MEDS ORDERED: VANCOMYCIN INJ 1,500 MG in SODIUM CHLORIDE 0.9% 500 ML IV SCH (06:00)
[2018-11-11 08:21] VITALS: BP 127/77
[2018-11-11] MEDS: methylPREDNISolone SOD SUC 40 MG/1 ML VIAL IV SCH (08:21)
[2018-11-11] MEDS: POTASSIUM CHLORIDE 20 MEQ TABLET PO PRN (08:21)
[2018-11-11] MEDS: PANTOPRAZOLE 40 MG TABLET PO SCH (08:21)
[2018-11-11] MEDS: FUROSEMIDE 40 MG/4 ML VIAL IV SCH (08:21)
[2018-11-11] MEDS ORDERED: amLODIPine 10 MG TABLET PO SCH (09:00)
[2018-11-11] MEDS ORDERED: PARoxetine 10 MG TABLET PO SCH (09:00)
[2018-11-11] MEDS ORDERED: BRIMONIDINE/TIMOLOL OPH SOLN 5 ML BOTTLE BOTH EYES SCH (09:00)
[2018-11-11] MEDS ORDERED: MULTIVITAMIN (CENTRUM) TABLET PO SCH (09:00)
[2018-11-11] MEDS ORDERED: LATANOPROST 0.005% OPH SOLN 2.5 ML BOTTLE BOTH EYES SCH (09:00)
[2018-11-11 10:08] LABS: Apearance,Urine CLEAR (Clear); Bacteria,Urine Occasional /HPF (Few); Bilirubin,Urine Negative (Negative); Blood, Urine Small mg/dL (Negative); Glucose,Urine (UA) Negative (Negative); Ketones,Urine Negative (Negative); Mucus,Urine Occasional /LPF (Occasional); Nitrite,Urine Negative (Negative); Protein,Urine Negative; RBC,Urine 1 /HPF (0-4); Squamous Epithelial Cell,Urine Occasional /HPF (0-10); Urine Color Colorless (Yellow); Urine Specific Gravity 1.005 (1.001-1.035); Urine Urobilinogen < 2.0 EU/DL (0.2-1.0)
[2018-11-11] MEDS ORDERED: WARFARIN 7.5 MG TABLET PO SCH (18:00)
[2018-11-12] MEDS ORDERED: LEVOFLOXACIN INJ 750 MG in PREMIX 1 EACH IV SCH (14:00)
[2018-11-12] MEDS ORDERED: WARFARIN 5 MG TABLET PO SCH (18:00)
== END 2018-11-11 12:28 | disposition home or self-care (01) | DRG 178 ==
LOC: EDBD → EDUNIT# → N.ED 05:07 → N.EDINP 07:13 → N.2E 08:49
PROVIDERS: ADMIT Internal Medicine; ATTEND Internal Medicine

== ENCOUNTER 2019-01-19 11:12 | Inpatient (IN) ==
[2019-01-19] MEDS ORDERED: ALBUTEROL/IPRATROPIUM 3 ML NEB RESP TX STA (12:11)
[2019-01-19 12:47] LABS: Basophils % 0.1 % (0.0-0.8); Eosinophils % 0.3 % (0.00-10.9); Hematocrit 31.5 VOL% (42.0-52.0); Hemoglobin 9.1 GM/DL (14.0-18.0); Immature Granulocytes % 0.6 %; Immature Granulocytes Absolute 0.08 #; Lymphocytes # 1.7 10*3/uL (1.4-4.0); Lymphocytes % 12.8 % (21.2-54.2); Mean Corpuscular HGB Conc 28.9 GM/DL (32-36); Mean Platelet Volume 9.8 FL (9.6-12.0); Monocytes % 10.2 % (1.7-12.7); Platelet Count 310 T/CUMM (130-400); Red Blood Count 3.12 MC/CUMM (3.8-5.5); Red Cell Distribution Width 16.8 % (9.3-17.3); White Blood Count 13.6 T/CUMM (4-12)
[2019-01-19 12:58] LABS: INR 1.3; PT Patient Result 14.6 SECS (9.6-12.2); Partial Thromboplastin Time 26.8 SECS (20.8-36.0)
[2019-01-19 13:06] LABS: Albumin 2.6 G/DL (3.4-5.0); Bilirubin,Total 0.8 MG/DL (0.2-1.0); Calcium 8.8 MG/DL (8.5-10.1); Osmolality,Calculated 313.7 MOS/KG (273-304); Total Protein 6.5 G/DL (6.4-8.3)
[2019-01-19 13:09] LABS: Troponin I 0.081 NG/ML (0.00-0.045)
[2019-01-19 13:25] LABS: Hypochromasia Slight; Microcytosis 1+; Platelet Estimate Normal; Polychromasia Few
[2019-01-19] MEDS ORDERED: ACETAMINOPHEN 325 MG TABLET PO PRN (15:38)
[2019-01-19] MEDS ORDERED: ONDANSETRON 4 MG/2 ML VIAL IV PRN (15:38)
[2019-01-19 16:08] LABS: Apearance,Urine CLOUDY (Clear); Bacteria,Urine Few /HPF (Few); Bilirubin,Urine Negative (Negative); Blood, Urine Large mg/dL (Negative); Glucose,Urine (UA) Negative (Negative); Ketones,Urine Negative (Negative); Mucus,Urine Occasional /LPF (Occasional); Nitrite,Urine Negative (Negative); Protein,Urine 100 MG/DL; RBC,Urine 84 /HPF (0-4); Urine Color Yellow (Yellow); Urine Specific Gravity 1.015 (1.001-1.035); Urine Urobilinogen < 2.0 EU/DL (0.2-1.0); WBC,Urine 114 /HPF (0-6)
[2019-01-19 16:36] LABS: Thyroid Stimulating Hormone 1.76 uIU/ml (0.358-3.74)
[2019-01-19] MEDS: DEXTROSE 5% 1,000 ML IV SCH (17:29)
[2019-01-19] MEDS: PIPERACILLIN/TAZOBACTAM 3,375 MG in SODIUM CHLORIDE 0.9% 100 ML IV SCH (17:49)
[2019-01-19] MEDS: ENOXAPARIN 80 MG/0.8 ML SYRINGE SUBCUT SCH (17:50)
[2019-01-19 18:43] LABS: Troponin I 0.078 NG/ML (0.00-0.045)
[2019-01-19] MEDS ORDERED: WARFARIN 5 MG TABLET PO ONE (19:30)
[2019-01-19] MEDS: ALBUTEROL 2.5 MG/3 ML NEB RESP TX SCH (19:54)
[2019-01-20] MEDS: ALBUTEROL 2.5 MG/3 ML NEB RESP TX SCH ×4 (00:39→19:27)
[2019-01-20] MEDS: PIPERACILLIN/TAZOBACTAM 3,375 MG in SODIUM CHLORIDE 0.9% 100 ML IV SCH ×3 (00:48→17:23)
[2019-01-20] MEDS: ENOXAPARIN 80 MG/0.8 ML SYRINGE SUBCUT SCH (03:39)
[2019-01-20 05:09] LABS: Basophils % 0.2 % (0.0-0.8); Eosinophils % 0.5 % (0.00-10.9); Hematocrit 27.6 VOL% (42.0-52.0); Immature Granulocytes % 0.4 %; Immature Granulocytes Absolute 0.03 #; Lymphocytes % 12.4 % (21.2-54.2); Mean Corpuscular Volume 98.9 FL (87-102); Mean Platelet Volume 10.1 FL (9.6-12.0); Neutrophils % 74.5 % (38.7-73.9); Platelet Count 286 T/CUMM (130-400); Red Blood Count 2.79 MC/CUMM (3.8-5.5); Red Cell Distribution Width 16.6 % (9.3-17.3); White Blood Count 8.3 T/CUMM (4-12)
[2019-01-20 05:16] LABS: INR 1.5; PT Patient Result 16.2 SECS (9.6-12.2)
[2019-01-20 05:29] LABS: Osmolality,Calculated 314.7 MOS/KG (273-304)
[2019-01-20] MEDS: DEXTROSE 5% 1,000 ML IV SCH (06:26)
[2019-01-20] MEDS ORDERED: GLUCAGON 1 MG VIAL IM PRN (09:42)
[2019-01-20] MEDS ORDERED: DEXTROSE 10% 25 GM/250 ML BAG IV PRN (09:42)
[2019-01-20] MEDS: MULTIVITAMIN (CENTRUM) TABLET PO SCH (11:55)
[2019-01-20] MEDS: INSULIN REGULAR 100 UNIT/ML SUBCUT SCH ×3 (12:04→20:42)
[2019-01-20] MEDS ORDERED: VANCOMYCIN INJ 1,250 MG in SODIUM CHLORIDE 0.9% 250 ML IV ONE (13:00)
[2019-01-20] MEDS ORDERED: SODIUM CHLORIDE 0.9% 1,000 ML IV PRN (13:47)
[2019-01-20] MEDS ORDERED: WARFARIN 5 MG TABLET PO SCH (17:00)
[2019-01-20] MEDS: BRIMONIDINE/TIMOLOL OPH SOLN 5 ML BOTTLE BOTH EYES SCH (20:50)
[2019-01-20] MEDS: LATANOPROST 0.005% OPH SOLN 2.5 ML BOTTLE BOTH EYES SCH (21:38)
[2019-01-21] MEDS: PIPERACILLIN/TAZOBACTAM 3,375 MG in SODIUM CHLORIDE 0.9% 100 ML IV SCH ×2 (00:33→09:40)
[2019-01-21] MEDS: ALBUTEROL 2.5 MG/3 ML NEB RESP TX SCH ×4 (00:35→20:35)
[2019-01-21 01:33] LABS: Hematocrit 34.1 VOL% (42.0-52.0); Hemoglobin 10.4 GM/DL (14.0-18.0)
[2019-01-21 05:09] LABS: Basophils # 0.1 10*3/uL (0.0-0.2); Basophils % 0.5 % (0.0-0.8); Eosinophils # 0.1 10*3/uL (0.0-0.87); Eosinophils % 1.2 % (0.00-10.9); Hematocrit 34.3 VOL% (42.0-52.0); Hemoglobin 10.5 GM/DL (14.0-18.0); Immature Granulocytes % 0.7 %; Immature Granulocytes Absolute 0.06 #; Lymphocytes # 1.4 10*3/uL (1.4-4.0); Lymphocytes % 15.5 % (21.2-54.2); Mean Corpuscular HGB Conc 30.6 GM/DL (32-36); Mean Corpuscular Volume 96.3 FL (87-102); Mean Platelet Volume 9.9 FL (9.6-12.0); Monocytes % 13.3 % (1.7-12.7); NRBC # 0.03 10*3/uL; Neutrophils % 68.8 % (38.7-73.9); Platelet Count 276 T/CUMM (130-400); Red Blood Count 3.56 MC/CUMM (3.8-5.5); Red Cell Distribution Width 16.7 % (9.3-17.3); White Blood Count 9.1 T/CUMM (4-12)
[2019-01-21 05:26] LABS: INR 1.6; PT Patient Result 16.9 SECS (9.6-12.2)
[2019-01-21 05:48] LABS: Calcium 8.7 MG/DL (8.5-10.1); Osmolality,Calculated 305.3 MOS/KG (273-304); Prealbumin 9.1 MG/DL (20-40)
[2019-01-21] MEDS ORDERED: VANCOMYCIN INJ 1,000 MG in SODIUM CHLORIDE 0.9% 250 ML IV SCH (07:00)
[2019-01-21] MEDS: INSULIN REGULAR 100 UNIT/ML SUBCUT SCH ×4 (08:09→21:26)
[2019-01-21] MEDS: MULTIVITAMIN (CENTRUM) TABLET PO SCH (09:39)
[2019-01-21] MEDS: PARoxetine 10 MG TABLET PO SCH (09:39)
[2019-01-21] MEDS ORDERED: cefTRIAXone 1,000 MG in SYRINGE 1 EACH IV SCH (10:00)
[2019-01-21 11:28] LABS: Lymphocytes,Pleural Fluid 74 %; Monocytes,Pleural Fluid 14 %; Neutrophils,Pleural Fluid 12 %
[2019-01-21 11:29] LABS: RBC,Pleural Fluid 4232 T/CUMM
[2019-01-21] MEDS: DEXTROSE 5% 1,000 ML IV SCH ×4 (12:44→16:51)
[2019-01-21] MEDS: BRIMONIDINE/TIMOLOL OPH SOLN 5 ML BOTTLE BOTH EYES SCH ×2 (12:47→21:25)
[2019-01-21 14:30] LABS: Total Protein,Pleural Fluid 2.8 G/DL
[2019-01-21] MEDS: HEPARIN DRIP 25,000 UNITS/500 ML PREMIX IV SCH (15:05)
[2019-01-21] MEDS: AMPICILLIN/SULBACTAM 3,000 MG in SODIUM CHLORIDE 0.9% 100 ML IV SCH ×2 (15:05→21:25)
[2019-01-21] MEDS ORDERED: WARFARIN 2.5 MG TABLET PO SCH (17:00)
[2019-01-21] MEDS: LATANOPROST 0.005% OPH SOLN 2.5 ML BOTTLE BOTH EYES SCH (21:25)
[2019-01-22] MEDS: DEXTROSE 5% 1,000 ML IV SCH ×2 (00:50→16:15)
[2019-01-22] MEDS: ALBUTEROL 2.5 MG/3 ML NEB RESP TX SCH ×3 (00:56→19:40)
[2019-01-22] MEDS: AMPICILLIN/SULBACTAM 3,000 MG in SODIUM CHLORIDE 0.9% 100 ML IV SCH ×4 (03:17→22:04)
[2019-01-22 04:48] LABS: Basophils % 0.3 % (0.0-0.8); Eosinophils # 0.1 10*3/uL (0.0-0.87); Eosinophils % 1.8 % (0.00-10.9); Hematocrit 33.5 VOL% (42.0-52.0); Hemoglobin 10.3 GM/DL (14.0-18.0); Immature Granulocytes % 0.6 %; Immature Granulocytes Absolute 0.04 #; Lymphocytes # 1.3 10*3/uL (1.4-4.0); Lymphocytes % 20.2 % (21.2-54.2); Mean Corpuscular HGB Conc 30.7 GM/DL (32-36); Mean Platelet Volume 9.8 FL (9.6-12.0); Monocytes % 12.3 % (1.7-12.7); Neutrophils % 64.8 % (38.7-73.9); Platelet Count 275 T/CUMM (130-400); Red Blood Count 3.49 MC/CUMM (3.8-5.5); Red Cell Distribution Width 16.3 % (9.3-17.3); White Blood Count 6.5 T/CUMM (4-12)
[2019-01-22 05:07] LABS: Calcium 8.9 MG/DL (8.5-10.1); Osmolality,Calculated 290.1 MOS/KG (273-304)
[2019-01-22] MEDS ORDERED: MAGNESIUM SULF RIDER 2 GM in PREMIX 1 EACH IV ONE (07:19)
[2019-01-22] MEDS: INSULIN REGULAR 100 UNIT/ML SUBCUT SCH ×4 (09:35→22:07)
[2019-01-22] MEDS: MULTIVITAMIN (CENTRUM) TABLET PO SCH (09:36)
[2019-01-22] MEDS: PARoxetine 10 MG TABLET PO SCH (09:36)
[2019-01-22] MEDS: BRIMONIDINE/TIMOLOL OPH SOLN 5 ML BOTTLE BOTH EYES SCH ×2 (09:38→22:06)
[2019-01-22] MEDS: WARFARIN 5 MG TABLET PO SCH (18:06)
[2019-01-22] MEDS: LATANOPROST 0.005% OPH SOLN 2.5 ML BOTTLE BOTH EYES SCH (22:10)
[2019-01-22] MEDS: HEPARIN DRIP 25,000 UNITS/500 ML PREMIX IV SCH (23:30)
[2019-01-23] MEDS: ALBUTEROL 2.5 MG/3 ML NEB RESP TX SCH ×4 (00:55→20:15)
[2019-01-23] MEDS: AMPICILLIN/SULBACTAM 3,000 MG in SODIUM CHLORIDE 0.9% 100 ML IV SCH ×3 (03:18→14:48)
[2019-01-23 04:56] LABS: Basophils % 0.3 % (0.0-0.8); Eosinophils # 0.1 10*3/uL (0.0-0.87); Hematocrit 34.6 VOL% (42.0-52.0); Hemoglobin 10.6 GM/DL (14.0-18.0); Immature Granulocytes % 0.3 %; Immature Granulocytes Absolute 0.02 #; Lymphocytes # 1.4 10*3/uL (1.4-4.0); Lymphocytes % 20.6 % (21.2-54.2); Mean Corpuscular HGB Conc 30.6 GM/DL (32-36); Mean Corpuscular Volume 96.1 FL (87-102); Mean Platelet Volume 10.1 FL (9.6-12.0); Monocytes % 14.5 % (1.7-12.7); Neutrophils % 62.3 % (38.7-73.9); Platelet Count 282 T/CUMM (130-400); Red Cell Distribution Width 15.8 % (9.3-17.3); White Blood Count 6.6 T/CUMM (4-12)
[2019-01-23 05:00] LABS: INR 1.7; PT Patient Result 18.4 SECS (9.6-12.2)
[2019-01-23 05:22] LABS: Calcium 8.8 MG/DL (8.5-10.1); Osmolality,Calculated 288.1 MOS/KG (273-304)
[2019-01-23] MEDS ORDERED: POTASSIUM CHLORIDE 20 MEQ TABLET PO ONE (08:30)
[2019-01-23] MEDS: MULTIVITAMIN (CENTRUM) TABLET PO SCH (08:42)
[2019-01-23] MEDS: BRIMONIDINE/TIMOLOL OPH SOLN 5 ML BOTTLE BOTH EYES SCH ×2 (08:42→20:22)
[2019-01-23] MEDS: PARoxetine 10 MG TABLET PO SCH (08:42)
[2019-01-23] MEDS: INSULIN REGULAR 100 UNIT/ML SUBCUT SCH ×4 (08:44→22:52)
[2019-01-23 16:15] LABS: Hematocrit 35.1 VOL% (42.0-52.0); Hemoglobin 10.8 GM/DL (14.0-18.0)
[2019-01-23] MEDS: HEPARIN DRIP 25,000 UNITS/500 ML PREMIX IV SCH (17:21)
[2019-01-23] MEDS: WARFARIN 5 MG TABLET PO SCH (17:27)
[2019-01-23] MEDS: LINEZOLID INJ 600 MG in PREMIX 1 EACH IV SCH (18:44)
[2019-01-23] MEDS: LATANOPROST 0.005% OPH SOLN 2.5 ML BOTTLE BOTH EYES SCH (20:22)
[2019-01-24] MEDS: ALBUTEROL 2.5 MG/3 ML NEB RESP TX SCH ×5 (00:21→20:23)
[2019-01-24 05:29] LABS: Basophils % 0.5 % (0.0-0.8); Eosinophils # 0.1 10*3/uL (0.0-0.87); Eosinophils % 1.2 % (0.00-10.9); Hematocrit 35.3 VOL% (42.0-52.0); Hemoglobin 10.9 GM/DL (14.0-18.0); Immature Granulocytes % 0.5 %; Immature Granulocytes Absolute 0.03 #; Lymphocytes # 1.5 10*3/uL (1.4-4.0); Lymphocytes % 22.7 % (21.2-54.2); Mean Corpuscular HGB Conc 30.9 GM/DL (32-36); Mean Corpuscular Volume 95.9 FL (87-102); Mean Platelet Volume 10.3 FL (9.6-12.0); Monocytes % 15.7 % (1.7-12.7); Neutrophils % 59.4 % (38.7-73.9); Platelet Count 282 T/CUMM (130-400); Red Blood Count 3.68 MC/CUMM (3.8-5.5); Red Cell Distribution Width 15.7 % (9.3-17.3); White Blood Count 6.5 T/CUMM (4-12)
[2019-01-24 05:49] LABS: Calcium 8.9 MG/DL (8.5-10.1); Osmolality,Calculated 279.5 MOS/KG (273-304)
[2019-01-24] MEDS: LINEZOLID INJ 600 MG in PREMIX 1 EACH IV SCH ×2 (06:15→17:29)
[2019-01-24 06:19] LABS: Atypical Lymphocytes Few; Band Neutrophils 1 % (0-10); Eosinophils 1 % (0-10); Lymphocytes 23 % (20-55); Myelocytes 1 %; Segmented Neutrophils 66 % (50-85); Total Cells Counted 100
[2019-01-24 06:20] LABS: Acanthocytes Few; Hypochromasia Slight; Microcytosis 1+; Ovalocytes Slight; Platelet Estimate Normal
[2019-01-24] MEDS: INSULIN REGULAR 100 UNIT/ML SUBCUT SCH ×4 (07:57→22:25)
[2019-01-24 08:38] LABS: INR 1.9; PT Patient Result 20.4 SECS (9.6-12.2)
[2019-01-24] MEDS: MULTIVITAMIN (CENTRUM) TABLET PO SCH (10:11)
[2019-01-24] MEDS: BRIMONIDINE/TIMOLOL OPH SOLN 5 ML BOTTLE BOTH EYES SCH ×2 (14:02→22:28)
[2019-01-24] MEDS: HEPARIN DRIP 25,000 UNITS/500 ML PREMIX IV SCH (14:57)
[2019-01-24] MEDS: WARFARIN 5 MG TABLET PO SCH (17:19)
[2019-01-24] MEDS: LATANOPROST 0.005% OPH SOLN 2.5 ML BOTTLE BOTH EYES SCH (22:28)
[2019-01-25] MEDS: ALBUTEROL 2.5 MG/3 ML NEB RESP TX SCH ×4 (00:36→20:32)
[2019-01-25] MEDS: LINEZOLID INJ 600 MG in PREMIX 1 EACH IV SCH ×2 (06:05→21:53)
[2019-01-25 06:13] LABS: PT Patient Result 21.1 SECS (9.6-12.2)
[2019-01-25] MEDS: INSULIN REGULAR 100 UNIT/ML SUBCUT SCH ×4 (09:10→20:36)
[2019-01-25] MEDS: MULTIVITAMIN (CENTRUM) TABLET PO SCH (10:08)
[2019-01-25] MEDS: BRIMONIDINE/TIMOLOL OPH SOLN 5 ML BOTTLE BOTH EYES SCH ×2 (13:38→21:46)
[2019-01-25] MEDS: HEPARIN DRIP 25,000 UNITS/500 ML PREMIX IV SCH (16:50)
[2019-01-25] MEDS: WARFARIN 5 MG TABLET PO SCH (17:30)
[2019-01-25] MEDS ORDERED: WARFARIN 2.5 MG TABLET PO ONE (18:00)
[2019-01-25] MEDS: LATANOPROST 0.005% OPH SOLN 2.5 ML BOTTLE BOTH EYES SCH (21:47)
[2019-01-26] MEDS: ALBUTEROL 2.5 MG/3 ML NEB RESP TX SCH ×4 (00:51→20:36)
[2019-01-26 06:39] LABS: INR 2.1
[2019-01-26 06:40] LABS: PT Patient Result 22.7 SECS (9.6-12.2)
[2019-01-26] MEDS ORDERED: WARFARIN 5 MG TABLET PO ONE (07:23)
[2019-01-26] MEDS: MULTIVITAMIN (CENTRUM) TABLET PO SCH (08:51)
[2019-01-26] MEDS: LINEZOLID INJ 600 MG in PREMIX 1 EACH IV SCH ×2 (08:51→18:06)
[2019-01-26] MEDS: INSULIN REGULAR 100 UNIT/ML SUBCUT SCH ×4 (08:52→20:09)
[2019-01-26] MEDS: BRIMONIDINE/TIMOLOL OPH SOLN 5 ML BOTTLE BOTH EYES SCH ×2 (10:55→21:24)
[2019-01-26] MEDS: WARFARIN 5 MG TABLET PO SCH (18:05)
[2019-01-26] MEDS: HEPARIN DRIP 25,000 UNITS/500 ML PREMIX IV SCH (21:21)
[2019-01-26] MEDS: LATANOPROST 0.005% OPH SOLN 2.5 ML BOTTLE BOTH EYES SCH (21:24)
[2019-01-27] MEDS: ALBUTEROL 2.5 MG/3 ML NEB RESP TX SCH ×2 (00:36→05:21)
[2019-01-27] MEDS: LINEZOLID INJ 600 MG in PREMIX 1 EACH IV SCH (06:12)
[2019-01-27 06:20] LABS: INR 2.7
[2019-01-27 06:23] LABS: PT Patient Result 29.2 SECS (9.6-12.2)
[2019-01-27] MEDS: BRIMONIDINE/TIMOLOL OPH SOLN 5 ML BOTTLE BOTH EYES SCH (09:31)
[2019-01-27] MEDS: MULTIVITAMIN (CENTRUM) TABLET PO SCH (09:31)
[2019-01-27] MEDS: INSULIN REGULAR 100 UNIT/ML SUBCUT SCH ×2 (09:32→13:38)
[2019-01-27 19:59] VITALS: BP 116/59
== END 2019-01-27 14:09 | disposition home or self-care (01) | DRG 981 ==
LOC: EDUNIT# → EDBD → N.ED 11:12 → N.EDINP 15:38 → SUATTDRO 15:38 → N.EDINP 16:30 → N.TELES 16:46 → N.5E 01-21 18:36
PROVIDERS: ADMIT Internal Medicine; ATTEND Family Medicine